=== PATIENT | female | born 1940 | race Caucasian/White ===

== ENCOUNTER 2017-09-04 11:59 | Day surgery (SDC) | payer MEDICARE, SELFPAY ==
--- NOTE | 2017-09-04 | PATH_ITS ---
[facility] Accession Number: [id number] . 01 Material submitted: . TRANSVERSE COLON POLYP . 02 Diagnosis: Transverse Colon Polyp: Tubular adenoma. BFI/09/05/2017 . 02 Electronically signed: . Raymond Banerjee MD, PhD, Pathologist NPI- [id number] . 01 Gross description: . Received one formalin-filled container, labeled with the patient's name, labeled transverse colon polyp. The specimen consists of a 0.3 cm portion of tissue, entirely submitted in one cassette. ([id number]) /FRR . 02 Pathologist provided ICD-10: D12.3 . 02 CPT . 042253 Performed at: 01 [facility] [place] [address] [id number] MD Chico Murray MD Phone: [phone] Performed at: 02 [facility] [place] [address] [address] [place], [place] [id number] MD Jaiden Troncoso MD Phone: [phone]
[2017-09-04 12:41] VITALS: BP 181/87; PULSE 84; RESP 17; TEMP 36.8; O2SAT 95; BMI 48.0
--- NOTE | 2017-09-04 12:56 | P.HP_ITS ---
History of Present Illness Chief complaint: [id number] Narrative: 77-year-old female with hypertension, diabetes who sent to our office for a primary screening colonoscopy. The patient has had 2 prior colonoscopies with no evidence of polyps. Her last colonoscopy was done over 10 years ago. The report is not available to me. She otherwise denies any GI alarm symptoms such as weight loss, GI bleeding, or persistent vomiting Patient History Family & Social History Social History: household members spouse Meds Allergies Allergy/AdvReac Type Severity Reaction Status Date / Time ether Allergy Confusion Verified 09/04/17 12:40 Exam Vital Signs (past 8 hours): Vital Signs - 8 hr 3 09/04/17 12:41 Temperature 98.3 F Pulse Rate 84 Respiratory Rate 17 Blood Pressure 181/87 H Pulse Oximetry 95 Pulse Oximetry 95 Oxygen Delivery Method Room Air Narrative Exam Narrative: General: Patient is obese, not in apparent distress Cardiovascular: Regular rate and rhythm, no murmurs, rubs, or gallops; positive bilateral lower extremity edema; no palpable abdominal aortic aneurysm Gastrointestinal: Normoactive bowel sounds, soft, nontender, nondistended, no rebound tenderness, no hepatosplenomegaly, no evidence of hernia Assessment & Plan Plan: Assessment/Plan Narrative: 77-year-old female with hypertension and diabetes here for a primary colonoscopy for colon cancer screening. Regarding the procedure(s), the risks and potential complications, benefits, and alternatives (including not doing the procedure) were discussed with the patient. The risks include but are not limited to bleeding, infection, perforation which may require surgical intervention, missed lesions, and adverse reactions to sedative medicines. After a question and answer period, the patient agreed to proceed with the procedure(s).
[2017-09-04 13:06] VITALS: BMI 48.0
--- NOTE | 2017-09-04 13:09 | SUR.PREOP ---
SPOKE WITH DR. JACK REGARDING PT EDEMA ON LOWER EXTREMITIES. NO NEW ORDERS PER DR. JACK PT STATES THIS IS BASELINE FOR HER. COMMUNICATED WITH WITH THE ENDO RN.
[2017-09-04] MEDS: SODIUM CHLORIDE 0.9% 1,000 ML 70 ML IV (13:29)
--- NOTE | 2017-09-04 13:53 | PM.OP.ENDO ---
Operative Date/Time/Diagnoses - Date of procedure: 09/04/17 Procedure Notes Procedure in detail: Surgeon: Tj Graham MD Procedure: Colonoscopy with polypectomy Preoperative diagnosis: Colon cancer screening, average risk Postoperative diagnosis: Transverse colon polyp status post polypectomy, diverticulosis, grade 1 internal hemorrhoids Medications: Conscious sedation using 5 mg IV of Midazolam and 100 mcg IV of Fentanyl Preanesthesia Assessment An H and P was performed/updated and the Px?s ASA class is 2. The procedure was discussed in detail with the patient. The potential risks and complications including infection, bleeding, missed lesions, perforation, need for surgery in case of perforation, prolonged hospital stay, and were explained. A brief question and answer period was allotted and once all questions were answered, informed consent was obtained. The patient was brought back to the procedure room and placed on standard monitoring. The patient?s vital signs were monitored continuously throughout the entire procedure. Prior to starting, a timeout was performed to confirm the patient?s identity, allergies, medications, and procedure. Procedure in detail The patient was placed in left lateral decubitus position and once adequate sedation was obtained a SEBASTIEN was performed. The digital rectal examination did not reveal any palpable lesions. The tip of the colonoscope was placed in the anal canal and advanced without difficulty all the way to the cecum which was identified by the appendiceal orifice and by the ileocecal valve. Careful examination of all ernst of the colon was performed with irrigation of any residual stool. In the transverse colon there was note of a 3 mm sessile polyp which was removed in its entirety by means of a cold Jumbo forceps with minimal bleeding. There is note of multiple diverticula in the ascending colon, transverse colon, descending colon and sigmoid colon which were medium in size. In the rectum retroflexion was performed and this revealed grade 1 internal hemorrhoids. The procedure was then terminated The patient tolerated the procedure well and will be brought back to the recovery area to be discharged once criteria are met. The prep was judged to be good/excellent and adequate to identify polyps less than 5 mm. The withdrawal time was 11 min. The total procedure time from initial sedation was 20 min. Complications There were no complications and estimated blood loss was minimal. Recommendations: Resume previous diet Continue outPx medications Follow up pathology results A repeat colonoscopy can be considered in 5 years if the polyp is adenomatous, and depending on the patient's clinical status and comorbidities status at that time; if the polyp is not adenomatous, no further colon cancer screening is required given the patient's age An emergency contact number was given to the patient for any complications related to the procedure
--- NOTE | 2017-09-04 13:55 | P.DS_ITS ---
History of Present Illness Chief complaint: [id number] Narrative: 77-year-old female with hypertension, diabetes who sent to our office for a primary screening colonoscopy. The patient has had 2 prior colonoscopies with no evidence of polyps. Her last colonoscopy was done over 10 years ago. The report is not available to me. She otherwise denies any GI alarm symptoms such as weight loss, GI bleeding, or persistent vomiting Discharge Providers Primary care physician: Cedric Meek MD Discharge provider: Tj Graham MD Exam Vital Signs (past 8 hours): Vital Signs - 8 hr 3 09/04/17 12:41 Temperature 98.3 F Pulse Rate 84 Respiratory Rate 17 Blood Pressure 181/87 H Pulse Oximetry 95 Pulse Oximetry 95 Oxygen Delivery Method Room Air Narrative Exam Narrative: General: Patient is obese, not in apparent distress Cardiovascular: Regular rate and rhythm, no murmurs, rubs, or gallops; positive bilateral lower extremity edema; no palpable abdominal aortic aneurysm Gastrointestinal: Normoactive bowel sounds, soft, nontender, nondistended, no rebound tenderness, no hepatosplenomegaly, no evidence of hernia Discharge Plan Discharge Plan Patient Disposition: Home, Self-Care Discharge comment: Remove IV prior to discharge Discharge to home once criteria are met (positive flatus, stable vital signs, no abdominal pain, tolerating p.o.) Discharge Med Rec/Prescriptions Prescriptions: Continue lovastatin 10 mg Tablet 10 mg PO DAILY RF: 0 potassium 99 mg Tablet 10 meq PO DAILY RF: 0 furosemide [Lasix] 80 mg Tablet 80 mg PO DAILY RF: 0 glipizide 5 mg Tablet 5 mg PO BID RF: 0 valsartan 40 mg Tablet 40 mg PO DAILY RF: 0 insulin glargine [Lantus Solostar U-100 Insulin] 100 unit/mL (3 mL) Insulin Pen 50 unit SUB-Q DAILY RF: 0 insulin lispro [Humalog Papo KwikPen U-100] 100 unit/mL Insulin Pen, Half- Unit 15 unit SUB-Q QACBREAK RF: 0 Discharge Orders: Discharge (Order); Ordered 09/04/17 Ordered By: Tj Graham Provider Discharge Instructions Diet: Diet as Tolerated Visit Report/Discharge Packet Stand Alone Forms: Surgery Discharge Discharge Data Primary Care Provider: Cedric Meek V Attending Provider: Tj Graham
[2017-09-04] MEDS: MIDAZOLAM 5 MG/5 ML VIAL IV (14:16)
[2017-09-04] MEDS: fentaNYL 250 MCG/5 ML INJ IV (14:16)
[2017-09-04 14:35] VITALS: BP 161/83; PULSE 71; RESP 15; TEMP 37.4; O2SAT 97
[2017-09-04 14:51] VITALS: BP 159/73; PULSE 72; RESP 16; TEMP 36.7; O2SAT 96
== END 2017-09-04 15:01 | disposition home or self-care (01) ==
PROVIDERS: Family Provider Internal Medicine; PCP Internal Medicine; Visit Provider Internal Medicine Gastroenterology
PROC: 0DJD8ZZ Inspection of Lower Intestinal Tract, Via Natural or Artificial Opening Endoscopic (ICD-10-PCS; CPT 45378; principal; 2017-09-04 13:00)
DX: Z12.11 Encounter for screening for malignant neoplasm of colon (principal); K57.30 Diverticulosis of large intestine without perforation or abscess without bleeding; K64.0 First degree hemorrhoids; D12.3 Benign neoplasm of transverse colon; I10 Essential (primary) hypertension; E66.9 Obesity, unspecified; E11.9 Type 2 diabetes mellitus without complications
CPT/HCPCS: 45380; J2250; J3010

== ENCOUNTER → 2018-01-10 10:03 | Outpatient (CLI) | payer MEDICARE, SELFPAY ==
--- NOTE | 2018-01-10 | DI.MRI.S_ITS ---
PROCEDURE: MR KNEE RT WO CON INDICATIONS: N TECHNIQUE: Noncontrast sagittal PD fast spin echo and T2 fast spin echo with fat saturation, sagittal 3-D FLASH with fat saturation; coronal T1 spin echo and PD fast spin echo with fat saturation, and axial PD fast spin echo with fat saturation through the knee. COMPARISON: None. FINDINGS: Image quality: Excellent. Menisci: There is peripheral displacement of the medial meniscus bowing medial collateral ligament. Truncated appearance of body and posterior horn of medial meniscus is seen suggestive of complex tear, extending to both superior and inferior articulating surfaces. No gross focal lateral meniscal tear is seen. The meniscal root ligaments appear intact. Cruciate ligaments: The anterior and posterior cruciate ligaments appear intact. Medial structures: There is low-grade proximal medial collateral ligament sprain near its femoral insertion. No evidence of MCL rupture. The posterior oblique ligament, semimembranosus tendon insertions, oblique popliteal ligament, and meniscocapsular junction appear intact. Visualized portions of the pes anserinus tendons appear normal. Lobulated cystic structure adjacent to posterior lateral periphery of lateral meniscus is seen and measures 1.7 x 1.2 x 2.7 cm in size which may represent a large brittany-meniscal cyst. Lateral structures: The lateral collateral ligament, long and short heads of the biceps femoris tendon appear intact. The popliteus tendon appears normal; the popliteofibular ligament appears intact. The posterosuperior and anteroinferior popliteomeniscal fascicles appear intact. The arcuate and fabellofibular ligaments appear intact, on either side of the lateral inferior geniculate artery. Iliotibial band appears normal. Anterior structures: The quadriceps and patellar tendons appear intact. Patellar alignment is normal. No femoral trochlear dysplasia or ventral trochlear prominence. No edema in the infrapatellar fat pad. Bones and cartilage: No bone marrow contusions or fractures. Mild tricompartmental osteoarthritis is noted. Patellar cartilage is intact. Thinning of articulating cartilage and medial femoral tibial compartment is noted. Joint space: There is small amount of joint fluid. No Bernabe's cyst. Normal appearing synovial plicae are incidentally noted. IMPRESSION: 1. Suggestion of complex tear involving body and posterior horn of medial meniscus extending to both superior and inferior articulating surface. Possible 1.7 x 1.2 x 2.7 cm brittany-meniscal cyst adjacent to posterior horn of medial meniscus. No focal lateral meniscal tear. 2. Mild tricompartmental osteoarthritis more prominent in the medial femoral tibial compartment. 3. Cruciate ligaments are intact. Low-grade proximal MCL sprain. Dictated by: Mac Salinas M.D. on 01/10/2018 at 12:50 Approved by: Mac Salinas M.D. on 01/10/2018 at 13:00
== END ==
PROVIDERS: Family Provider Internal Medicine; PCP Internal Medicine; Visit Provider Orthopaedic Surgery
DX: M17.11 Unilateral primary osteoarthritis, right knee (principal); S83.411A Sprain of medial collateral ligament of right knee, initial encounter
CPT/HCPCS: 73721

== ENCOUNTER → 2018-12-10 14:58 | Outpatient (CLI) | payer MEDICARE, SELFPAY ==
--- NOTE | 2018-12-10 | DI.ECHO.S_ITS ---
[place] [facility]---------[facility] +---------+ : : [address] : : : : [id number] : : : : Phone: [phone]+ Echocardiogram Report + + :Name: ZAINAB GARCIA Study Date: 12/10/2018 Height: 59 in : :[facility] Exam Location: [facility] Weight: 245 lb : : Gender: Female BSA: 2.0 m2 : :: 1940 Age: 78 yrs BP: 150/72 mmHg: :Reason For Study: MURMUR : : Performed By: Clayton Lee : :Referring: CADEN BRYANT : + + Interpretation Summary The left ventricle is normal in size. The ejection fraction is estimated to be 65-70%. The right ventricle is normal in size and function. The aortic valve is not well visualized. The aortic valve is mildly calcified. There is mildly reduced leaflet mobility. The peak aortic velocity is 2.28 m/sec. The aortic valve mean gradient is 12 mmHg. The calculated aortic valve area is 2.0 cm2. There is mild aortic stenosis. Compared to the prior echo study, the aortic stenosis is a new finding. There is mild aortic regurgitation. Compared to the prior echo study, the aortic insufficiency is a new finding. Procedure: A two-dimensional transthoracic echocardiogram with color flow and Doppler was performed. The study quality was technically adequate. Comparison is made with the echocardiogram of 05/11/09. The patient was in normal sinus rhythm during the exam. Left Ventricle: The left ventricle is normal in size. Left ventricular wall thickness is borderline increased. Proximal septal thickening is noted. There is no echo evidence for significant left ventricular outflow tract obstruction. There is no thrombus. The ejection fraction is estimated to be 65-70%. There are no focal wall motion abnormalities. MV E/A: 0.71 Med Peak E' Bolivar: 3.9 cm/sec E/E' med: 20.5. Right Ventricle: The right ventricle is normal in size and function. Atria: The left atrium is mildly dilated. The left atrium has mildly increased in size since the prior echo exam. Right atrial size is normal. The interatrial septum is intact with no evidence for an atrial septal defect. Mitral Valve: There is mild mitral annular calcification. There is trace mitral regurgitation. Aortic Valve: The aortic valve is not well visualized. The aortic valve is mildly calcified. There is mildly reduced leaflet mobility. The peak aortic velocity is 2.28 m/sec. The calculated aortic valve area is 2.0 cm2. There is no hemodynamically significant valvular aortic stenosis. The aortic valve mean gradient is 12 mmHg. There is mild aortic stenosis. Compared to the prior echo study, the aortic stenosis is a new finding. There is mild aortic regurgitation. Compared to the prior echo study, the aortic insufficiency is a new finding. Tricuspid Valve: The tricuspid valve is normal in structure and function. There is trace tricuspid regurgitation. The right ventricular systolic pressure is estimated to be at least 18 mmHg based on an estimated right atrial pressure of 3 mm Hg. Pulmonic Valve: The pulmonic valve is not well visualized. Great Vessels: The aortic root is normal size. The dimensions of the ascending aorta are normal. The pulmonary artery is normal size. The IVC is of normal diameter and collapses greater than 50% with a sniff. This suggests a low right atrial pressure of 3 mm Hg. Pericardium/ Pleura There is no pericardial effusion. There is no pleural effusion. MMode/2D Measurements & Calculations LVIDd: 4.6 cm LVOT diam: 2.2 cm LVIDs: 2.6 cm Ao root diam: 3.1 cm FS: 43.4 % Aortic Jxn: 2.5 cm EPSS: 0.19 cm asc Aorta Diam: 3.3 cm IVSd: 1.1 cm Ao Arch Diam (Prox Trans): 2.5 cm LVPWd: 0.97 cm LV hughes. diameter/BSA (cm/m^2): 2.3 LV sys. diameter/BSA (cm/m^2): 1.3 LA dimension: 4.6 cm RA long axis: 4.3 cm LA A2 area: 20.6 cm2 RA area: 12.8 cm2 LA A4 area: 18.2 cm2 RA vol: 32.7 ml LA length (vol): 4.9 cm RA : 16.3 ml/m2 LA vol: 65.2 ml IVC diam: 1.2 cm LA vol index: 32.4 ml/m2 Doppler Measurements & Calculations Ao V2 max: 228.9 cm/sec LVOT Max Bolivar: 121.7 cm/sec Ao V2 mean: 166.3 cm/sec LV V1 max P.9 mmHg Ao max P.0 mmHg LV V1 VTI: 24.1 cm Ao mean P.9 mmHg KIMI(I,D): 2.1 cm2 Ao V2 VTI: 43.3 cm KIMI(V,D): 2.0 cm2 sev ratio: 0.56 KIMI indexed to BSA (cm^2/m^2): 1.0 AI P1/2t: 490.1 msec AI dec slope: 251.7 cm/sec2 MV E max bolivar: 80.3 cm/sec TR max bolivar: 194.8 cm/sec MV A max bolivar: 113.7 cm/sec TR max P.2 mmHg MV E/A: 0.71 PA V2 max: 97.1 cm/sec Med Peak E' Bolivar: 3.9 cm/sec PA V2 mean: 73.6 cm/sec E/E' med: 20.5 PA mean P.3 mmHg Lat Peak E' Bolivar: 7.3 cm/sec PA pr(Accel): 54.0 mmHg E/E' lat: 11.0 PA Accel Time: 0.06 sec E/e' average: 15.7 MV dec time: 0.21 sec SV(LVOT): 90.2 ml Reading Physician:12:50 PM
== END ==
PROVIDERS: PCP Internal Medicine; Visit Provider Internal Medicine
DX: I08.0 Rheumatic disorders of both mitral and aortic valves (principal); R01.1 Cardiac murmur, unspecified
CPT/HCPCS: 93306

== ENCOUNTER → 2019-11-30 19:16 | Outpatient (ROUT) | payer MEDICARE, SELFPAY ==
[2019-11-30 19:52] LABS: BUN Creatinine Ratio 25.4 (6-22); Blood Urea Nitrogen 17 mg/dL (7-17); Calcium 9.3 mg/dL (8.4-10.2); Carbon Dioxide 24 mmol/L (22-32); Chloride 107 mmol/L (98-107); Cholesterol 159 mg/dL (140-199); Estimated Glomerular Filt Rate > 60.0 mL/min (>60); Glucose 155 mg/dL (80-110); HDL Cholesterol 54 mg/dL (40-60); LDL Cholesterol Calculated 85 mg/dL (<100); Sodium 139 mmol/L (137-145); Triglycerides 101 mg/dL (35-150)
[2019-11-30 20:10] LABS: HEMOLYSIS 120 (0-50)
[2019-11-30 20:11] LABS: Potassium 4.9 mmol/L (3.4-5.1)
[2019-11-30 20:12] LABS: Aspartate Aminotransferase 46 IU/L (14-36)
== END ==
PROVIDERS: PCP Internal Medicine; Visit Provider Internal Medicine
DX: I10 Essential (primary) hypertension (principal); E78.2 Mixed hyperlipidemia
CPT/HCPCS: 80048; 80061; 84450

== ENCOUNTER → 2019-12-18 13:53 | Outpatient (CLI) | payer MEDICARE, SELFPAY ==
[2019-12-20 09:30] LABS: COVID19 Sendout Not Detected (Not Detect)
== END ==
PROVIDERS: PCP Internal Medicine; Visit Provider Physician Assistant
DX: Z11.59 Encounter for screening for other viral diseases (principal)
CPT/HCPCS: 87635

== ENCOUNTER → 2020-05-30 18:38 | Outpatient (ROUT) | payer OTHER, SELFPAY ==
[2020-05-30 19:50] LABS: BUN Creatinine Ratio 18.4 (6-22); Blood Urea Nitrogen 14 mg/dL (7-17); Calcium 9.4 mg/dL (8.4-10.2); Carbon Dioxide 29 mmol/L (22-32); Chloride 103 mmol/L (98-107); Estimated Glomerular Filt Rate > 60.0 mL/min (>60); Glucose 327 mg/dL (80-110); HEMOLYSIS < 15 (0-50); Sodium 138 mmol/L (137-145)
[2020-05-30 20:22] LABS: TSH w/ Reflex to FT4 0.18 uIU/mL (0.47-4.68)
== END ==
PROVIDERS: PCP Internal Medicine; Visit Provider Internal Medicine
DX: I10 Essential (primary) hypertension (principal); E78.2 Mixed hyperlipidemia
CPT/HCPCS: 80048; 84439; 84443

== ENCOUNTER → 2020-10-04 14:40 | Outpatient (CLI) | payer OTHER, SELFPAY | PROVIDERS: PCP Internal Medicine; Referring Provider Internal Medicine; Visit Provider Internal Medicine | DX: Z78.0 Asymptomatic menopausal state (principal); M85.852 Other specified disorders of bone density and structure, left thigh; E11.9 Type 2 diabetes mellitus without complications; Z91.89 Other specified personal risk factors, not elsewhere classified; Z82.62 Family history of osteoporosis | CPT/HCPCS: 77080 ==

== ENCOUNTER → 2021-10-31 10:42 | Outpatient (CLI) | payer OTHER, SELFPAY ==
[2021-10-31 14:01] LABS: COVID19 -Nasal RAPID Negative (Negative)
--- NOTE | 2021-11-01 19:04 | DI.NM.S_ITS ---
DATE OF SERVICE: 11/01/2021 PROCEDURE: Pharmacological perfusion study. INDICATION: Chest pain with underlying diabetes mellitus, hypertension and hyperlipidemia. RADIOPHARMACEUTICAL: 25.6 millicurie technetium-99m Myoview IV was injected at stress and 24.7 millicurie technetium-99m Myoview IV was injected at rest. CARDIAC STRESS: The patient underwent IV Lexiscan study under the supervision of an attending staff as per standard intravenous Lexiscan protocol. The patient remained hemodynamically stable. Baseline blood pressure was 150/88. Baseline rhythm was sinus. During stress, there were no convincing ischemic changes. Occasional PACs seen. The patient did not have chest pain. Had minimal dyspnea. RAW DATA: There was breast shadow seen. GATED STUDY: Stress LV ejection fraction 71 percent without any obvious wall motion abnormalities. Resting end-diastolic volume 66 mL. TID ratio 0.68, which is within normal limits. Lung/heart ratio 0.25, which is within normal limits. MYOCARDIAL PERFUSION SCAN: The stress supine, resting supine and stress prone images were compared to each other. The stress supine and resting supine images revealed small size, mildly decreased perfusion of base to mid anterior wall, which got completely resolved during stress prone images, suggestive of breast tissue attenuation artifact. CONCLUSION: I will call this study a normal myocardial perfusion study with evidence of breast tissue attenuation artifact, which got resolved during stress prone images. Preserved left ventricular function. Overall low-risk myocardial perfusion scan. The patient had a perfusion study in February,, at that time, also, she had similar findings. However, at that time, she walked on Levi protocol for 5 minutes. This is a pharmacological perfusion study. Ashley Sharif - Saniya/bull doc#: [id number]/job#: [id number] dd: 11/01/2021 16:56:00 dt: 11/01/2021 18:49:00 DICTATING MD/COPIES TO: Autumn Garcia MD COPIES MNE: RINA;
== END ==
PROVIDERS: PCP Student in an Organized Health Care Education/Training Program; Referring Provider Student in an Organized Health Care Education/Training Program; Visit Provider Student in an Organized Health Care Education/Training Program
DX: R07.89 Other chest pain (principal); E11.9 Type 2 diabetes mellitus without complications; E78.5 Hyperlipidemia, unspecified; I10 Essential (primary) hypertension; Z20.822 Contact with and (suspected) exposure to COVID-19
CPT/HCPCS: 78452; 87635; 93017; A9502; J2785

== ENCOUNTER → 2022-01-10 09:56 | Outpatient (CLI) | payer OTHER, SELFPAY ==
--- NOTE | 2022-01-10 | DI.RAD.S_ITS ---
PROCEDURE: XR CHEST 2V INDICATIONS: Shortness of breath TECHNIQUE: 2 views of the chest were acquired. COMPARISON: None. FINDINGS: Surgical changes and devices: None. Lungs and pleura: Prominent pulmonary markings bilaterally. Suspect Estela B lines. Low lung volumes. Small bilateral pleural effusions. No pneumothorax. Mediastinum: Mediastinal contours are normal. Heart size is prominent. Bones and chest wall: No suspicious bony abnormalities. Possible large gallstone. IMPRESSION: Fluid overload/CHF. Small bilateral pleural effusions. Dictated by: Delon Ames M.D. on 01/10/2022 at 11:42 Approved by: Delon Ames M.D. on 01/10/2022 at 11:44
== END ==
PROVIDERS: PCP Student in an Organized Health Care Education/Training Program; Referring Provider Internal Medicine; Visit Provider Internal Medicine
DX: I50.9 Heart failure, unspecified (principal); J90 Pleural effusion, not elsewhere classified; R06.02 Shortness of breath
CPT/HCPCS: 71046

== ENCOUNTER → 2022-01-26 13:34 | Outpatient (CLI) | payer OTHER, SELFPAY ==
--- NOTE | 2022-01-26 | DI.ECHO.S_ITS ---
[facility]---------+ [facility] +---------+ : : [address] [place] : : : : [id number] : : : : Phone: [phone]---------+ Echocardiogram Report + + :Name: ZAINAB GARCIA Study Date: 01/26/2022 Height: 60 in : :[facility] ReadingLocation: Weight: 230 lb : : Gender: Female BSA: 2.0 m2 : :: 1940 Age: 81 yrs BP: 131/91 mmHg: :Reason For Study: Atrial fibrillation : :Ordering Physician: HARRISON, : :MICHELLE Performed By: Holden Joseph : :Referring: MICHELLE TERRY : + + Interpretation Summary Afib with rapid ventricular response. The left ventricle is normal in size. The ejection fraction is estimated to be 65-70%. Normal chamber sizes. Aortic valve is not well seen, but demonstrates severely reduced leaflet excursion. Peak velocity is 2 m/sec and mean gradient is 11 mm Hg. Mild aortic regurgitation. Compared to the prior echo study, afib is new. Procedure: A two-dimensional transthoracic echocardiogram with color flow and Doppler was performed. The study quality was technically adequate. Comparison is made with the echocardiogram of 12/10/2018. The patient was in atrial fibrillation with heart rates between 94-134 bpm during the exam. Left Ventricle: The left ventricle is normal in size and wall thickness. Left ventricular systolic function is normal. The ejection fraction is estimated to be 60-65%. There are no focal wall motion abnormalities. Diastolic function could not be accurately assessed due to atrial fibrillation. Right Ventricle: The right ventricle is normal in size and function. Atria: The left atrium is mildly dilated. Right atrial size is normal. The interatrial septum grossly appears intact with no obvious evidence for an atrial septal defect. Mitral Valve: There is mild mitral annular calcification. There is mild mitral regurgitation. Aortic Valve: The aortic valve is not well visualized. The aortic valve is mildly calcified. There is mild aortic stenosis. There is mild aortic regurgitation. Tricuspid Valve: The tricuspid valve is normal in structure and function. There is mild tricuspid regurgitation. The right ventricular systolic pressure is estimated to be at least 34 mmHg based on an estimated right atrial pressure of 3 mm Hg. Pulmonic Valve: The pulmonic valve is not well seen, but is grossly normal. There is no pulmonic valvular regurgitation. Great Vessels: The aortic root is normal size. The dimensions of the ascending aorta are normal. The IVC is of normal diameter and collapses greater than 50% with a sniff. This suggests a low right atrial pressure of 3 mm Hg. Pericardium/ Pleura There is no pericardial effusion. There is no pleural effusion. MMode/2D Measurements & Calculations LVIDd: 5.1 cm LVOT diam: 1.9 cm LVIDs: 3.6 cm Ao root diam: 2.9 cm FS: 30.2 % asc Aorta Diam: 3.2 cm IVSd: 0.92 cm LVPWd: 0.89 cm LV hughes. diameter/BSA (cm/m^2): 2.6 LV sys. diameter/BSA (cm/m^2): 1.8 LA A2 area: 22.9 cm2 RA long axis: 5.9 cm LA A4 area: 24.0 cm2 RA area: 18.6 cm2 LA length (vol): 5.7 cm RA vol: 50.2 ml LA vol: 81.3 ml RA : 25.3 ml/m2 LA vol index: 41.1 ml/m2 TAPSE: 1.9 cm Doppler Measurements & Calculations Ao V2 max: 216.9 cm/sec LVOT Max Bolivar: 93.5 cm/sec Ao V2 mean: 153.0 cm/sec LV V1 max P.5 mmHg Ao max P.8 mmHg LV V1 VTI: 17.2 cm Ao mean P.4 mmHg KIMI(I,D): 1.3 cm2 Ao V2 VTI: 37.3 cm KIMI(V,D): 1.2 cm2 sev ratio: 0.46 KIMI indexed to BSA (cm^2/m^2): 0.63 TR max bolivar: 277.4 cm/sec SV(LVOT): 46.8 ml TR max P.8 mmHg Electronically signed by: Armida Purcell M.D. on Reading Physician:01/27/2022 09:12 AM
== END ==
PROVIDERS: PCP Student in an Organized Health Care Education/Training Program; Referring Provider Internal Medicine; Visit Provider Internal Medicine
DX: I08.3 Combined rheumatic disorders of mitral, aortic and tricuspid valves (principal); I48.91 Unspecified atrial fibrillation
CPT/HCPCS: 93306

== ENCOUNTER 2022-02-05 14:57 | Emergency (ER) | payer OTHER, SELFPAY ==
[2022-02-05] VITALS (42 sets, daily range): BP systolic 109–182; BP diastolic 72–131; PULSE 124–149; RESP 14–29; TEMP 36.7; O2SAT 94–98; BMI 48.4
--- NOTE | 2022-02-05 15:37 | DI.RAD.S_ITS ---
PROCEDURE: XR CHEST 1V INDICATIONS: chest pain TECHNIQUE: One view of the chest was acquired. COMPARISON: [facility], CR, XR CHEST 2V, 01/10/2022, 10:02. FINDINGS: Surgical changes and devices: None. Lungs and pleura: Lungs are clear. No pleural effusions or pneumothorax. Mediastinum: Mediastinal contours appear normal. Heart size is cardiomegaly. Bones and chest wall: No suspicious bony lesions. Overlying soft tissues appear unremarkable. IMPRESSION: No acute pulmonary process. Dictated by: Evonne Pace M.D. on 02/05/2022 at 16:59 Approved by: Evonne Pace M.D. on 02/05/2022 at 16:59
[2022-02-05] MEDS: ASPIRIN 81 MG CHEW TAB 324 MG PO (16:36)
--- NOTE | 2022-02-05 18:16 | ED_ITS ---
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 She is been feeling poorly for the past month or so and as stated has been on Eliquis without any missed doses for least 3 weeks. She becomes short of breath with exertion and this improves with rest. She denies chest pain but does have some pressure when she exerts herself. She is not dizzy or lightheaded. She denies nausea, vomiting or diarrhea. She is had no fever or chills. Related Data Home Medications Medication Instructions Recorded Confirmed furosemide 80 mg tablet (Lasix) 80 mg PO DAILY 09/04/17 09/04/17 glipizide 5 mg tablet 5 mg PO BID 09/04/17 09/04/17 insulin glargine 100 unit/mL (3 50 unit SUBCUT DAILY 09/04/17 09/04/17 mL) subcutaneous pen (Lantus Solostar U-100 Insulin) insulin lispro 100 unit/mL 15 unit SUBCUT QACBREAK 09/04/17 09/04/17 subcutaneous half-unit pen (Humalog Papo KwikPen (U-100)) lovastatin 10 mg tablet 10 mg PO DAILY 09/04/17 09/04/17 potassium 99 mg tablet 10 meq PO DAILY 09/04/17 09/04/17 valsartan 40 mg tablet 40 mg PO DAILY 09/04/17 09/04/17 apixaban 5 mg tablet (Eliquis) 5 mg PO BID 02/05/22 02/05/22 Allergies Allergy/AdvReac Type Severity Reaction Status Date / Time ether Allergy Confusion Verified 09/04/17 12:40 Review of Systems Review of Systems Narrative: GENERAL: Denies chills, fatigue, malaise, fever, sweats. HEENT: Denies sinus pain, ear pain, sore throat, difficulty swallowing, dizziness. RESPIRATORY: See HPI CARDIOVASCULAR: See HPI GASTROINTESTINAL: Denies nausea, vomiting, abdominal pain, diarrhea, constipation, melena. : Denies dysuria, frequency, incontinence, hematuria, urinary retention. MUSCULOSKELETAL: denies weakness, joint pain, or bony pain SKIN: Denies rash, skin lesions, or other NEUROLOGIC: Denies weakness, headache, numbness, change in speech, confusion, seizures, incoordination. PSYCHIATRIC: No concerning psychosocial issues. 12 point review of systems is negative except for those stated above Patient History Social History household members: spouse Smoking Status: Former smoker Smoking Status: Former smoker alcohol intake frequency: holidays/special occasions only Substance Use Type: does not use Exam Narrative Exam Narrative: GENERAL: [81] year old patient appears stated age. Well-developed patient, in mild distress. HEAD: Atraumatic. Normocephalic. EYES: Pupils equal round and reactive. Extraocular motions intact. No scleral icterus. No injection or drainage. ENT: Nose without bleeding, purulent drainage. Throat without erythema, tonsillar hypertrophy or exudate. Airway patent. NECK: Trachea midline. Non tender CARDIOVASCULAR: Tachycardic and irregular rhythm without murmurs, gallops, or rubs. RESPIRATORY: Clear to auscultation. Breath sounds equal bilaterally. No wheezes, rales, or rhonchi. GASTROINTESTINAL: Abdomen soft, non-tender, nondistended. EXTREMITIES: No edema or joint tenderness. BACK: Nontender without deformity or crepitance. No flank tenderness. NEURO: AOx3. SKIN: No rash or erythema of visible areas Initial Vital Signs Initial Vital Signs: Vital Signs Pulse Rate 139 H 02/05/22 15:25 Respiratory Rate 15 02/05/22 15:25 Blood Pressure 148/95 H 02/05/22 15:25 Pulse Oximetry 97 02/05/22 15:25 Procedures Cardioversion Consent Signed: Yes Indication: rapid atrial fibrillation Stability: Stable Number of attempts (shocks): 1 Joules used: 120 Cardiac rhythm post-cardioversion: NSR Procedural Sedation Consent signed: Yes Time out performed: Yes Indication: cardioversion ASA Class: II Mallampati Airway Classification: Class III Preparation: satellite project site monitor applied, pulse oximeter, capnometry used, supple mental O2 applied, suction/airway equipment at bedside and IV secured IV Propofol dose (mg): 40 Intraservice time/total sedation time (min): 10 ED Sedation Level: Moderate (Concious) Patient Tolerated Procedure: Well Complications: none Course Orders Ordered: ED Orders 02/05/22 18:42 Consult After Hours PICC Line RN Stat 02/05/22 18:43 COVID19 -Nasal RAPID/Pre-Proc Stat Discontinued Medications Apixaban (Apixaban 5 Mg Tablet) 5 mg PO NOW ONE Stop: 02/05/22 18:04 Last Admin: 02/05/22 18:47 Dose: 5 mg Documented By: JUSTUS Aspirin (Aspirin 81 Mg Chew Tab) 324 mg PO NOW ONE Stop: 02/05/22 15:38 Last Admin: 02/05/22 16:36 Dose: 324 mg Documented By: ASTRID Diltiazem HCl (Diltiazem 5 Mg/Ml Sdv) 10 mg IV NOW ONE Stop: 02/05/22 15:39 Last Admin: 02/06/22 00:43 Dose: 10 mg Documented By: DEMETRIUS Diltiazem HCl (Diltiazem 30 Mg Tablet) 30 mg PO NOW ONE Stop: 02/05/22 18:03 Last Admin: 02/05/22 18:47 Dose: 30 mg Documented By: JUSTUS Hydromorphone HCl (Hydromorphone 0.5 Mg Inj) 0.5 mg IV NOW ONE Stop: 02/06/22 00:49 Last Admin: 02/06/22 00:56 Dose: Not Given Documented By: DEMETRIUS Propofol (Propofol 200 Mg/20 Ml Vial) 100 mg IV NOW ONE Stop: 02/06/22 01:50 Last Admin: 02/06/22 02:01 Dose: 40 mg Documented By: CALIXTO Reevaluation(s) Reevaluation #1: Patient has been evaluated by multiple nurses, even with ultrasound and is a very difficult IV stick. Midline consult placed Vital Signs Vital signs: Vital Signs - 8 hr 02/05/22 19:15 02/05/22 19:30 02/05/22 19:30 Pulse Rate 138 H 134 H Respiratory Rate 25 H 24 Blood Pressure 165/116 H Pulse Oximetry 98 96 02/05/22 19:45 02/05/22 20:00 02/05/22 20:01 Pulse Rate 133 H 133 H 124 H Respiratory Rate 25 H 24 26 H Blood Pressure Pulse Oximetry 95 94 95 02/05/22 20:01 02/05/22 20:15 02/05/22 20:30 Pulse Rate 134 H 138 H Respiratory Rate 24 22 Blood Pressure 171/131 H Pulse Oximetry 94 98 02/05/22 20:31 02/05/22 20:31 02/05/22 20:45 Pulse Rate 135 H 137 H Respiratory Rate 27 H 23 Blood Pressure 132/99 H Pulse Oximetry 98 97 02/05/22 21:00 02/05/22 21:00 02/05/22 21:15 Pulse Rate 137 H 136 H Respiratory Rate 21 22 Blood Pressure 128/88 Pulse Oximetry 96 96 02/05/22 21:30 02/05/22 21:30 02/05/22 21:45 Pulse Rate 141 H 141 H Respiratory Rate 25 H 22 Blood Pressure 142/110 H Pulse Oximetry 97 97 02/05/22 22:00 02/05/22 22:00 02/05/22 22:15 Pulse Rate 139 H 135 H Respiratory Rate 28 H 26 H Blood Pressure 125/100 H Pulse Oximetry 98 97 02/05/22 22:30 02/05/22 22:30 02/05/22 22:45 Pulse Rate 130 H 132 H Respiratory Rate 25 H 25 H Blood Pressure 109/72 Pulse Oximetry 96 96 02/05/22 23:00 02/05/22 23:01 02/05/22 23:01 Pulse Rate 135 H 129 H Respiratory Rate 26 H 24 Blood Pressure 115/91 H Pulse Oximetry 95 96 02/05/22 23:15 02/05/22 23:37 02/05/22 23:45 Pulse Rate 132 H 136 H 133 H Respiratory Rate 23 17 21 Blood Pressure Pulse Oximetry 96 97 96 02/06/22 00:00 02/06/22 00:00 02/06/22 00:15 Pulse Rate 129 H 137 H Respiratory Rate 23 23 Blood Pressure 152/101 H Pulse Oximetry 95 96 02/06/22 00:30 02/06/22 00:30 02/06/22 00:45 Pulse Rate 131 H 129 H Respiratory Rate 23 19 Blood Pressure 168/83 H Pulse Oximetry 95 95 02/06/22 01:53 02/06/22 01:00 02/06/22 01:00 Pulse Rate 72 124 H Respiratory Rate 27 H 21 Blood Pressure 126/58 L 160/82 H Pulse Oximetry 96 95 02/06/22 01:15 02/06/22 01:30 02/06/22 01:30 Pulse Rate 133 H 132 H Respiratory Rate 21 25 H Blood Pressure 152/93 H Pulse Oximetry 93 96 02/06/22 01:45 02/06/22 02:05 02/06/22 02:10 Pulse Rate 128 H 73 73 Respiratory Rate 19 26 H 16 Blood Pressure 116/56 L 107/57 L Pulse Oximetry 95 94 91 02/06/22 02:15 02/06/22 02:20 02/06/22 02:22 Pulse Rate 71 74 Respiratory Rate 10 L 29 H 23 Blood Pressure 113/58 L 138/63 130/63 Pulse Oximetry 97 93 94 MDM - SOB/Dyspnea Lab Data Result diagrams: 02/06/22 00:15 02/06/22 00:15 Labs: Lab Results 02/06/22 02/06/22 02/06/22 Range/Units 00:15 00:15 00:15 WBC 13.9 H (4.5-11.0) X10^3/uL RBC 4.27 (4.0-5.2) X10^6/uL Hgb 11.8 L (12.0-16.0) g/dL Hct 35.8 L (36-46) % MCV 83.9 (80-100) fL MCH 27.7 (26-34) PG MCHC 33.0 (30-36) % RDW 15.3 H (11.6-14.8) % Plt Count 227 (150-400) X10^3/uL Neut % (Auto) 61.3 (50-75) % Lymph % (Auto) 29.9 (25-40) % [place] % (Auto) 6.6 (3-14) % Eos % (Auto) 1.3 L (2-4) % Baso % (Auto) 0.9 (0-2) % Neut # (Auto) 8500 H (1064-6928) /uL Lymph # (Auto) 4200 (8615-3611) /uL [place] # (Auto) 900 (0-900) /uL Eos # (Auto) 200 (0-450) /uL Baso # (Auto) 100 (0-100) /uL PT 15.1 H (10.1-12.7) SECONDS INR 1.3 (0.9-1.3) APTT 34 (26-36) SECONDS Sodium 140 (137-145) mmol/L Potassium 3.6 (3.4-5.1) mmol/L Chloride 102 (98-107) mmol/L Carbon Dioxide 31 (22-32) mmol/L BUN 22 H (7-17) mg/dL Creatinine 1.04 (0.52-1.04) mg/dL Estimated GFR 54 L (>60) mL/min BUN/Creatinine Ratio 21.2 (6-22) Glucose 91 (80-110) mg/dL Calcium 9.3 (8.4-10.2) mg/dL Magnesium 2.4 H (1.6-2.3) mg/dL Total Bilirubin 0.6 (0.2-1.3) mg/dL AST 32 (14-36) IU/L ALT 36 H (<35) IU/L Alkaline Phosphatase 78 (38-126) U/L Total Creatine Kinase 71 (30-135) U/L CK-MB (CK-2) TNP CK-MB (CK-2) Rel Index TNP Troponin I < 0.012 (0.01-0.034) ng/mL Total Protein 6.9 (6.3-8.2) g/dL Albumin 3.7 (3.5-5.0) g/dL Globulin 3.2 (1.7-4.1) g/dL Albumin/Globulin Ratio 1.2 (1.0-2.8) Lipase 101 (23-300) U/L Point of Care Testing Test Results Negative Discharge Plan Departure Patient Disposition: Home Clinical Impression: Atrial fibrillation with rapid ventricular response Instructions: DI for Atrial Fibrillation Activity Restrictions/Additional Instructions: *You have been diagnosed with [rapid atrial fibrillation with cardioversion using Propofol 40mg ] *What to do: *Please increase your Propanolol from 20mg twice daily to 20mg in the morning and 40mg in the evening. *Please follow up with your primary care provider in 2-3 days, call for an appointment. Let them know you were seen in the Emergency Department and that we ask that you be seen in follow up. We will electronically transmit a record of today's note if your PCP is in our system *If you do not have a primary care provider please contact the [facility] Resource line at [phone]. They will ask some questions about your medical history and help get you set up with a doctor in the community. *Return to Emergency Department if you should have any new, worsening or concerning symptoms, such as [fever greater than 101 F, shaking chills, worsen ing pain, persistent vomiting or other bothersome symptoms] Prescriptions: No Action Eliquis 5 mg tablet 5 mg PO BID lovastatin 10 mg Tablet 10 mg PO DAILY potassium 99 mg Tablet 10 meq PO DAILY furosemide [Lasix] 80 mg Tablet 80 mg PO DAILY glipizide 5 mg Tablet 5 mg PO BID valsartan 40 mg Tablet 40 mg PO DAILY insulin glargine [Lantus Solostar U-100 Insulin] 100 unit/mL (3 mL) Insulin Pen 50 unit SUB-Q DAILY insulin lispro [Humalog Papo KwikPen U-100] 100 unit/mL Insulin Pen, Half- Unit 15 unit SUB-Q NICOLE Referrals: Darya Luna, MEREC [Primary Care Provider] -
[2022-02-05] MEDS: dilTIAZem 30 MG TABLET PO (18:47)
[2022-02-05] MEDS: APIXABAN 5 MG TABLET PO (18:47)
--- NOTE | 2022-02-05 23:13 | PC.NURSE ---
A Fib. with RVR at rate of 150bpm
--- NOTE | 2022-02-05 23:14 | PC.NURSE ---
At this time still awaiting PICC team to come and start IV.
[2022-02-06] VITALS (27 sets, daily range): BP systolic 107–168; BP diastolic 56–101; PULSE 71–137; RESP 10–37; O2SAT 91–97
[2022-02-06 00:29] LABS: Add Manual Diff / Slide Review NO; Basophils Absolute Auto 100 /uL (0-100); Basophils Percent Auto 0.9 % (0-2); Eosinophils Absolute Auto 200 /uL (0-450); Eosinophils Percent Auto 1.3 % (2-4); Hematocrit 35.8 % (36-46); Hemoglobin 11.8 g/dL (12.0-16.0); Lymphocytes Absolute Auto 4200 /uL (1100-4500); Lymphocytes Percent Auto 29.9 % (25-40); Mean Corpuscular Hemoglobin 27.7 PG (26-34); Mean Corpuscular Volume 83.9 fL (80-100); Monocytes Absolute Auto 900 /uL (0-900); Monocytes Percent Auto 6.6 % (3-14); Neutrophils Absolute Auto 8500 /uL (1500-7000); Neutrophils Percent Auto 61.3 % (50-75); Platelet Count 227 X10^3/uL (150-400); Red Blood Cell Count 4.27 X10^6/uL (4.0-5.2); Red Cell Distribution Width 15.3 % (11.6-14.8); White Blood Cell Count 13.9 X10^3/uL (4.5-11.0)
[2022-02-06 00:31] LABS: INR 1.3 (0.9-1.3); Prothrombin Time 15.1 SECONDS (10.1-12.7)
[2022-02-06 00:34] LABS: PTT Partial Thromboplastin Tim 34 SECONDS (26-36)
[2022-02-06 00:38] LABS: Alanine Aminotransferase 36 IU/L (<35); Albumin 3.7 g/dL (3.5-5.0); Albumin Globulin Ratio 1.2 (1.0-2.8); Alkaline Phosphatase 78 U/L (38-126); Aspartate Aminotransferase 32 IU/L (14-36); BUN Creatinine Ratio 21.2 (6-22); Bilirubin Total 0.6 mg/dL (0.2-1.3); Blood Urea Nitrogen 22 mg/dL (7-17); Calcium 9.3 mg/dL (8.4-10.2); Carbon Dioxide 31 mmol/L (22-32); Chloride 102 mmol/L (98-107); Creatine Kinase 71 U/L (30-135); Estimated Glomerular Filt Rate 54 mL/min (>60); Globulin 3.2 g/dL (1.7-4.1); Glucose 91 mg/dL (80-110); HEMOLYSIS < 15 (0-50); Lipase 101 U/L (23-300); Magnesium 2.4 mg/dL (1.6-2.3); Potassium 3.6 mmol/L (3.4-5.1); Sodium 140 mmol/L (137-145); Total Protein 6.9 g/dL (6.3-8.2)
[2022-02-06] MEDS: dilTIAZem 5 MG/ML SDV 10 MG IV (00:43)
[2022-02-06 00:48] LABS: Troponin I < 0.012 ng/mL (0.01-0.034)
[2022-02-06] MEDS: propofoL 200 MG/20 ML VIAL 100 MG IV (02:01)
--- NOTE | 2022-02-06 03:18 | PC.NURSE ---
pt ambulated with not assistance other than her cane from home. she stated she felt good' after the ambulation trial.
== END 2022-02-06 03:43 | disposition home or self-care (01) ==
PROVIDERS: Emergency Medicine; Emergency Provider Emergency Medicine; PCP Student in an Organized Health Care Education/Training Program
DX: I48.20 Chronic atrial fibrillation, unspecified (principal); Z79.01 Long term (current) use of anticoagulants; R06.02 Shortness of breath; R07.9 Chest pain, unspecified
CPT/HCPCS: 36415; 71045; 80053; 82550; 83690; 83735; 84484; 85025; 85610; 85730; 92960; 93005; 96374; 99152; 99285; J2704

== ENCOUNTER 2022-03-07 20:28 | Emergency (ER) | payer OTHER, SELFPAY ==
[2022-03-07] VITALS (11 sets, daily range): BP systolic 119–161; BP diastolic 74–103; PULSE 101–116; RESP 15–58; TEMP 36.8; O2SAT 93–96; BMI 49.4
--- NOTE | 2022-03-07 21:02 | DI.RAD.S_ITS ---
PROCEDURE: XR CHEST 1V INDICATIONS: Shortness of breath TECHNIQUE: One view of the chest was acquired. COMPARISON: [facility], CR, XR CHEST 1V, 02/05/2022, 15:35. FINDINGS: Surgical changes and devices: None. Lungs and pleura: There is mild pulmonary edema. Bibasilar opacities consistent with atelectasis or consolidation are demonstrated. There are small bilateral pleural effusions. Mediastinum: Mediastinal contours are unchanged. Heart size is enlarged. Bones and chest wall: No suspicious bony lesions. Overlying soft tissues appear unremarkable. IMPRESSION: 1. Pulmonary edema with small bilateral pleural effusions as well as cardiomegaly suggestive of congestive heart failure. 2. Bibasilar opacities consistent with atelectasis or consolidation. Dictated by: Chico Longoria M.D. on 03/07/2022 at 22:07 Approved by: Chico Longoria M.D. on 03/07/2022 at 22:09
--- NOTE | 2022-03-07 21:38 | ED.GENADULT ---
HPI - General Adult General Chief complaint: Shortness of Breath/Dyspnea Stated complaint: SOB/RETAINING FLUID Time Seen by Provider: 03/07/22 21:14 Source: patient and family Mode of arrival: Wheelchair History of Present Illness HPI narrative: Patient is an 81-year-old female. Recent diagnosis of atrial fibrillation. Rate controlled. Is on Eliquis. Here for evaluation of several days of worsening shortness of breath and lower extremity swelling and weight gain. She states that she was on a diuretic but her primary doctor's office took her off the diuretic and put her on another medicine. Initially she was unsure as to what this medication was. She is having some chest tightness. Related Data Home Medications Medication Instructions Recorded Confirmed furosemide 80 mg tablet (Lasix) 80 mg PO DAILY 09/04/17 09/04/17 glipizide 5 mg tablet 5 mg PO BID 09/04/17 09/04/17 insulin glargine 100 unit/mL (3 50 unit SUBCUT DAILY 09/04/17 09/04/17 mL) subcutaneous pen (Lantus Solostar U-100 Insulin) insulin lispro 100 unit/mL 15 unit SUBCUT QACBREAK 09/04/17 09/04/17 subcutaneous half-unit pen (Humalog Papo KwikPen (U-100)) lovastatin 10 mg tablet 10 mg PO DAILY 09/04/17 09/04/17 potassium 99 mg tablet 10 meq PO DAILY 09/04/17 09/04/17 valsartan 40 mg tablet 40 mg PO DAILY 09/04/17 09/04/17 apixaban 5 mg tablet (Eliquis) 5 mg PO BID 02/05/22 02/05/22 Allergies Allergy/AdvReac Type Severity Reaction Status Date / Time ether Allergy Confusion Verified 09/04/17 12:40 Review of Systems Constitutional Constitutional: Reports system reviewed and no additional complaints, except as documented Cardiovascular Cardiovascular: Reports system reviewed and no additional complaints, except as documented Respiratory Respiratory: Reports system reviewed and no additional complaints, except as documented Gastrointestinal Gastrointestinal: Reports system reviewed and no additional complaints, except as documented Integumentary/Breasts Skin/Breast: Reports system reviewed and no additional complaints, except as documented Neurologic Neurologic: Reports system reviewed and no additional complaints, except as documented Hematologic/Lymphatic On Anticoagulants: Yes Patient History Social History household members: spouse Smoking Status: Former smoker Smoking Status: Former smoker alcohol intake frequency: holidays/special occasions only Substance Use Type: does not use Exam Initial Vital Signs Initial Vital Signs: Vital Signs Temperature 98.2 F 03/07/22 20:39 Pulse Rate 103 H 03/07/22 20:39 Respiratory Rate 20 03/07/22 20:39 Blood Pressure 119/75 03/07/22 20:39 Pulse Oximetry 96 03/07/22 20:39 Oxygen Delivery Method 03/07/22 20:39 Const General: cooperative and comfortable HENMT Head: normal to inspection and normocephalic Resp Effort & Inspection: normal respiratory effort and tachypneic Auscultation: clear to auscultation bilaterally, no rhonchi and no wheezes Cardio Rate: regular rate Rhythm: abnormal rhythm GI Inspection: normal to inspection Skin General: No erythema Neuro General: patient alert and patient awake Extrem General: edema Course Orders Ordered: ED Orders 03/07/22 21:02 XR chest 1V Stat EKG-12 Lead Stat Measure peak expiratory flow ONCE RT Consult Eval and Treat NOW 03/07/22 21:30 COVID19 -Nasal RAPID/Pre-Proc Stat 03/07/22 21:48 Complete Blood Count AUTO DIFF Stat Comprehensive Metabolic Panel Stat Lactate (Lactic Acid) Stat NT-proBNP (BNP-Adult 18+) Stat Prothrombin Time INR Stat Troponin I Stat Discontinued Medications Furosemide 60 mg/ Sodium (Chloride) 56 mls @ 112 mls/hr IV NOW ONE Stop: 03/07/22 22:14 Last Infusion: 03/07/22 23:00 Dose: 0 mls/hr Documented By: Admin: 03/07/22 22:24 Dose: 112 mls/hr Documented By: CAPO Vital Signs Vital signs: Vital Signs - 8 hr 03/07/22 20:39 03/07/22 21:05 03/07/22 21:06 Temperature 98.2 F Pulse Rate 103 H 107 H Respiratory Rate 20 29 H Blood Pressure 119/75 149/87 H Pulse Oximetry 96 96 Oxygen Delivery Method Room Air 03/07/22 21:06 03/07/22 21:30 03/07/22 21:31 Temperature Pulse Rate 103 H 115 H Respiratory Rate 27 H Blood Pressure 143/74 H Pulse Oximetry 96 95 Oxygen Delivery Method 03/07/22 21:31 03/07/22 21:57 03/07/22 21:57 Temperature Pulse Rate 101 H 111 H Respiratory Rate 58 H 22 Blood Pressure 161/81 H Pulse Oximetry 95 93 Oxygen Delivery Method Room Air 03/07/22 22:00 03/07/22 22:03 03/07/22 22:03 Temperature Pulse Rate 112 H 104 H Respiratory Rate 15 22 Blood Pressure 133/83 Pulse Oximetry 93 94 Oxygen Delivery Method 03/07/22 22:30 03/07/22 22:30 03/07/22 23:00 Temperature Pulse Rate 113 H Respiratory Rate 24 Blood Pressure 148/87 H 158/103 H Pulse Oximetry 94 Oxygen Delivery Method 03/07/22 23:00 03/07/22 23:30 03/07/22 23:30 Temperature Pulse Rate 116 H 106 H Respiratory Rate 29 H 23 Blood Pressure 161/99 H Pulse Oximetry 93 94 Oxygen Delivery Method 03/08/22 00:00 03/08/22 00:00 03/08/22 00:30 Temperature Pulse Rate 110 H 124 H Respiratory Rate 22 24 Blood Pressure 179/83 H Pulse Oximetry 96 96 Oxygen Delivery Method 03/08/22 00:31 03/08/22 00:31 03/08/22 01:00 Temperature Pulse Rate 112 H 119 H Respiratory Rate 24 31 H Blood Pressure 200/84 H Pulse Oximetry 95 95 Oxygen Delivery Method Medical Decision Making Lab Data Lab results reviewed: Yes I reviewed the patient's lab results. Result diagrams: 03/07/22 21:48 03/07/22 21:48 Labs: Lab Results 03/07/22 03/07/22 03/07/22 Range/Units 21:30 21:48 21:48 WBC 13.5 H (4.5-11.0) X10^3/uL RBC 4.23 (4.0-5.2) X10^6/uL Hgb 11.7 L (12.0-16.0) g/dL Hct 35.5 L (36-46) % MCV 83.9 (80-100) fL MCH 27.6 (26-34) PG MCHC 32.9 (30-36) % RDW 16.0 H (11.6-14.8) % Plt Count 279 (150-400) X10^3/uL Neut % (Auto) 73.0 (50-75) % Lymph % (Auto) 19.4 L (25-40) % [place] % (Auto) 5.9 (3-14) % Eos % (Auto) 1.0 L (2-4) % Baso % (Auto) 0.7 (0-2) % Neut # (Auto) 9900 H (2375-3894) /uL Lymph # (Auto) 2600 (4123-6149) /uL [place] # (Auto) 800 (0-900) /uL Eos # (Auto) 100 (0-450) /uL Baso # (Auto) 100 (0-100) /uL PT 18.1 H (10.1-12.7) SECONDS INR 1.6 H (0.9-1.3) Sodium (137-145) mmol/L Potassium (3.4-5.1) mmol/L Chloride (98-107) mmol/L Carbon Dioxide (22-32) mmol/L BUN (7-17) mg/dL Creatinine (0.52-1.04) mg/dL Estimated GFR (>60) mL/min BUN/Creatinine Ratio (6-22) Glucose (80-110) mg/dL Lactate (0.7-2.1) mmol/L Calcium (8.4-10.2) mg/dL Total Bilirubin (0.2-1.3) mg/dL AST (14-36) IU/L ALT (<35) IU/L Alkaline Phosphatase (38-126) U/L Troponin I (0.01-0.034) ng/mL NT-Pro-B Natriuret Pep (<450) pg/mL Total Protein (6.3-8.2) g/dL Albumin (3.5-5.0) g/dL Globulin (1.7-4.1) g/dL Albumin/Globulin Ratio (1.0-2.8) SARS-CoV-2 (PCR) Negative (Negative) 03/07/22 03/07/22 Range/Units 21:48 21:48 WBC (4.5-11.0) X10^3/uL RBC (4.0-5.2) X10^6/uL Hgb (12.0-16.0) g/dL Hct (36-46) % MCV (80-100) fL MCH (26-34) PG MCHC (30-36) % RDW (11.6-14.8) % Plt Count (150-400) X10^3/uL Neut % (Auto) (50-75) % Lymph % (Auto) (25-40) % [place] % (Auto) (3-14) % Eos % (Auto) (2-4) % Baso % (Auto) (0-2) % Neut # (Auto) (9293-2034) /uL Lymph # (Auto) (4246-3084) /uL [place] # (Auto) (0-900) /uL Eos # (Auto) (0-450) /uL Baso # (Auto) (0-100) /uL PT (10.1-12.7) SECONDS INR (0.9-1.3) Sodium 140 (137-145) mmol/L Potassium 4.4 (3.4-5.1) mmol/L Chloride 107 (98-107) mmol/L Carbon Dioxide 26 (22-32) mmol/L BUN 20 H (7-17) mg/dL Creatinine 1.05 H (0.52-1.04) mg/dL Estimated GFR 54 L (>60) mL/min BUN/Creatinine Ratio 19.0 (6-22) Glucose 167 H (80-110) mg/dL Lactate 1.2 (0.7-2.1) mmol/L Calcium 9.0 (8.4-10.2) mg/dL Total Bilirubin 0.6 (0.2-1.3) mg/dL AST 26 (14-36) IU/L ALT 48 H (<35) IU/L Alkaline Phosphatase 93 (38-126) U/L Troponin I < 0.012 (0.01-0.034) ng/mL NT-Pro-B Natriuret Pep 517 H (<450) pg/mL Total Protein 6.8 (6.3-8.2) g/dL Albumin 3.8 (3.5-5.0) g/dL Globulin 3.0 (1.7-4.1) g/dL Albumin/Globulin Ratio 1.3 (1.0-2.8) SARS-CoV-2 (PCR) (Negative) Imaging Data Chest x-ray: Radiologist's Impression: [address] [address] XRay Report Signed Patient: Ashley Sharif MR#: [id number] : 1940 Acct:[id number] Age/Sex: 81 / F Date of Service: 03/07/22 Loc: ED Accession Number: [id number] ?? Procedure: XR chest 1V Ordering Provider: Jace Crain D.O. PROCEDURE:? XR CHEST 1V ? INDICATIONS:? Shortness of breath ? TECHNIQUE:? One view of the chest was acquired.? ? COMPARISON:? [facility], , XR CHEST 1V, 02/05/2022, 15:35. ? FINDINGS:? ? Surgical changes and devices:? None.? ? Lungs and pleura:? There is mild pulmonary edema.? Bibasilar opacities consistent with atelectasis or consolidation are demonstrated.? There are small bilateral pleural effusions. ? Mediastinum:? Mediastinal contours are unchanged.? Heart size is enlarged. ? Bones and chest wall:? No suspicious bony lesions.? Overlying soft tissues appear unremarkable.? ? IMPRESSION:? ? 1. Pulmonary edema with small bilateral pleural effusions as well as cardiomegaly suggestive of congestive heart failure. ? 2. Bibasilar opacities consistent with atelectasis or consolidation.? ? ? Dictated by: Chico Longoria M.D. on 03/07/2022 at 22:07 ? ? Approved by: Chico Longoria M.D. on 03/07/2022 at 22:09?? ECG Data Attestation: I personally reviewed and interpreted this ECG as follows: Interpretation: Atrial fibrillation Rate of [address] T wave changes Normal axis MDM Narrative Medical decision making narrative: No respiratory distress but is tachypneic. Lungs are clear. Not hypoxic. Upon further evaluation and talking about her medications it appears that she was on furosemide but her primary doctor's office took her off this medication. They prescribed her Turosimide however she is run out of this medication and actually has not been on it for the past week. Patient was given Lasix. She did diurese greater than 1 L of urine. Chest x-ray is consistent with fluid retention. Lower extremities are swelling which is consistent with this as well. She is in AFib but is also rate controlled and is on Eliquis. She states that she is been having issues with her new diuretic and that the pharmacy could not fill it because the insurance company states that is been too soon. She states she is taking in his directed. She does have Lasix at home. She will start taking the Lasix until she can get the issues with her new diuretic worked out with her primary provider. No indication for admission to the hospital. She was given return precautions. She expressed understanding and agreement. Discharge Plan Departure Patient Disposition: Home Clinical Impression: Dyspnea, Edema Instructions: Edema Activity Restrictions/Additional Instructions: I recommend she go back on your Lasix at the current instructions on the prescription. Tomorrow contact your primary doctor to discuss the other diuretic. Continue the rest of your medications as directed. Return to the emergency department for any new symptoms. Prescriptions: No Action Eliquis 5 mg tablet 5 mg PO BID lovastatin 10 mg Tablet 10 mg PO DAILY potassium 99 mg Tablet 10 meq PO DAILY furosemide [Lasix] 80 mg Tablet 80 mg PO DAILY glipizide 5 mg Tablet 5 mg PO BID valsartan 40 mg Tablet 40 mg PO DAILY insulin glargine [Lantus Solostar U-100 Insulin] 100 unit/mL (3 mL) Insulin Pen 50 unit SUB-Q DAILY insulin lispro [Humalog Papo KwikPen U-100] 100 unit/mL Insulin Pen, Half-Unit 15 unit SUB-Q QACBREAK Referrals: Darya Luna, DELMER [Primary Care Provider] - Visit Report Forms: Patient Portal/API
[2022-03-07 21:56] LABS: Add Manual Diff / Slide Review NO; Basophils Absolute Auto 100 /uL (0-100); Basophils Percent Auto 0.7 % (0-2); Eosinophils Absolute Auto 100 /uL (0-450); Hematocrit 35.5 % (36-46); Hemoglobin 11.7 g/dL (12.0-16.0); Lymphocytes Absolute Auto 2600 /uL (1100-4500); Lymphocytes Percent Auto 19.4 % (25-40); Mean Corpuscular HGB Conc 32.9 % (30-36); Mean Corpuscular Hemoglobin 27.6 PG (26-34); Mean Corpuscular Volume 83.9 fL (80-100); Monocytes Absolute Auto 800 /uL (0-900); Monocytes Percent Auto 5.9 % (3-14); Neutrophils Absolute Auto 9900 /uL (1500-7000); Platelet Count 279 X10^3/uL (150-400); Red Blood Cell Count 4.23 X10^6/uL (4.0-5.2); White Blood Cell Count 13.5 X10^3/uL (4.5-11.0)
[2022-03-07 22:04] LABS: INR 1.6 (0.9-1.3); Prothrombin Time 18.1 SECONDS (10.1-12.7)
[2022-03-07 22:05] LABS: COVID19 -Nasal RAPID Negative (Negative)
[2022-03-07 22:11] LABS: HEMOLYSIS < 15 (0-50)
[2022-03-07 22:16] LABS: Lactate (Lactic Acid) 1.2 mmol/L (0.7-2.1)
[2022-03-07] MEDS: FUROSEMIDE 60 MG in SODIUM CHLORIDE 0.9% 50 ML 112 MG IV (22:24)
[2022-03-07 22:25] LABS: Alanine Aminotransferase 48 IU/L (<35); Albumin 3.8 g/dL (3.5-5.0); Albumin Globulin Ratio 1.3 (1.0-2.8); Alkaline Phosphatase 93 U/L (38-126); Aspartate Aminotransferase 26 IU/L (14-36); Bilirubin Total 0.6 mg/dL (0.2-1.3); Blood Urea Nitrogen 20 mg/dL (7-17); Carbon Dioxide 26 mmol/L (22-32); Chloride 107 mmol/L (98-107); Estimated Glomerular Filt Rate 54 mL/min (>60); Glucose 167 mg/dL (80-110); Potassium 4.4 mmol/L (3.4-5.1); Sodium 140 mmol/L (137-145); Total Protein 6.8 g/dL (6.3-8.2)
[2022-03-07 22:29] LABS: NT-proBNP (BNP-Adult 18+) 517 pg/mL (<450); Troponin I < 0.012 ng/mL (0.01-0.034)
[2022-03-08] VITALS: BP 179/83; PULSE 110; RESP 22; O2SAT 96
[2022-03-08 00:30] VITALS: PULSE 124; RESP 24; O2SAT 96
[2022-03-08 00:31] VITALS: BP 200/84; PULSE 112; RESP 24; O2SAT 95
[2022-03-08 01:00] VITALS: PULSE 119; RESP 31; O2SAT 95
== END 2022-03-08 01:24 | disposition home or self-care (01) ==
PROVIDERS: Emergency Provider Emergency Medicine; PCP Student in an Organized Health Care Education/Training Program
DX: R06.00 Dyspnea, unspecified (principal); R60.9 Edema, unspecified; R07.9 Chest pain, unspecified; I48.91 Unspecified atrial fibrillation; Z79.01 Long term (current) use of anticoagulants; Z20.822 Contact with and (suspected) exposure to COVID-19; Z79.899 Other long term (current) drug therapy
CPT/HCPCS: 36415; 71045; 80053; 83605; 83880; 84484; 85025; 85610; 87635; 93005; 96365; 99284; C9803; J1940

== ENCOUNTER → 2022-12-27 08:34 | Outpatient (CLI) | payer OTHER, SELFPAY ==
[2022-12-27 09:51] LABS: Add Manual Diff / Slide Review NO; Basophils Absolute Auto 100 /uL (0-100); Basophils Percent Auto 0.8 % (0-2); Eosinophils Absolute Auto 200 /uL (0-450); Hematocrit 36.2 % (36-46); Lymphocytes Absolute Auto 2000 /uL (1100-4500); Lymphocytes Percent Auto 18.2 % (25-40); Mean Corpuscular HGB Conc 33.2 % (30-36); Mean Corpuscular Hemoglobin 27.5 PG (26-34); Mean Corpuscular Volume 82.8 fL (80-100); Monocytes Absolute Auto 800 /uL (0-900); Monocytes Percent Auto 6.8 % (3-14); Neutrophils Absolute Auto 8100 /uL (1500-7000); Neutrophils Percent Auto 72.2 % (50-75); Platelet Count 214 X10^3/uL (150-400); Red Blood Cell Count 4.37 X10^6/uL (4.0-5.2); Red Cell Distribution Width 16.9 % (11.6-14.8); White Blood Cell Count 11.2 X10^3/uL (4.5-11.0)
[2022-12-27 10:13] LABS: Alanine Aminotransferase 22 IU/L (<35); Albumin 3.7 g/dL (3.5-5.0); Albumin Globulin Ratio 1.4 (1.0-2.8); Alkaline Phosphatase 78 U/L (38-126); Aspartate Aminotransferase 26 IU/L (14-36); BUN Creatinine Ratio 17.2 (6-22); Bilirubin Total 0.6 mg/dL (0.2-1.3); Blood Urea Nitrogen 20 mg/dL (7-17); Calcium 9.3 mg/dL (8.4-10.2); Carbon Dioxide 30 mmol/L (22-32); Chloride 103 mmol/L (98-107); Cholesterol 159 mg/dL (140-199); Estimated Glomerular Filt Rate 47 mL/min (>60); Globulin 2.6 g/dL (1.7-4.1); Glucose 124 mg/dL (80-110); HDL Cholesterol 60 mg/dL (40-60); HEMOLYSIS < 15 (0-50); LDL Cholesterol Calculated 80 mg/dL (<100); Potassium 4.1 mmol/L (3.4-5.1); Sodium 142 mmol/L (137-145); Total Protein 6.3 g/dL (6.3-8.2); Triglycerides 96 mg/dL (35-150)
[2022-12-27 10:52] LABS: Creatinine Urine Random 162.3 mg/dL
[2022-12-27 10:55] LABS: Microalbumi Creatinin Ratio Ur 29.5 ug/mg CR (<30); Microalbumin Urine Random 4.8 mg/dL (0-1.6)
[2022-12-27 11:53] LABS: Hemoglobin A1C% w Est Avg Glu 6.8 % (4.0-6.0)
== END ==
PROVIDERS: PCP Student in an Organized Health Care Education/Training Program; Referring Provider Student in an Organized Health Care Education/Training Program; Visit Provider Student in an Organized Health Care Education/Training Program
DX: N18.32 Chronic kidney disease, stage 3b (principal); E11.69 Type 2 diabetes mellitus with other specified complication; E78.5 Hyperlipidemia, unspecified
CPT/HCPCS: 36415; 80053; 80061; 82043; 82570; 83036; 85025